=== PATIENT | female | born 1975 | race Caucasian/White ===

== ENCOUNTER 2016-10-23 12:53 | Emergency (ER) | payer OTHER ==
[~2016-10-23] VITALS: Ht 175.3 cm; Wt 76.4 kg
[~2016-10-23 12:53] MED LIST: ALBU8.5H2 INHALATION; BENZ142C6 TP; CETI10CA PO; DOCU100T2 PO; ERGO500029 PO; FERR-83 PO; FLUT16SP2 NS; IBUP800T28 PO; LORA0.5T PO; ROPI0.5T PO; SUMA50TA31 PO; VITAMIN B12 PO
[2016-10-23 12:56] VITALS: BP 123/80; PULSE 77; RESP 16; O2SAT 97
--- NOTE | 2016-10-23 14:10 | DRSVH ---
PROCEDURE: X-RAY CHEST, TWO VIEWS ([id number]) INDICATIONS: 41 year-old female with dyspnea. TECHNIQUE: 2 views of the chest were acquired. COMPARISON: None. FINDINGS: Surgical changes and devices: Cervical spine anterior fixation hardware is incompletely visualized. Lungs and pleura: No pleural effusions or pneumothorax. Lungs are clear. Mediastinum: Mediastinal contours are normal. Heart size is normal. Bones and chest wall: No suspicious bony abnormalities. Soft tissues appear unremarkable. IMPRESSION: No acute cardiopulmonary disease. Dictated by: Hebert Vidal M.D. on 10/23/2016 at 14:08 Approved by: Hebert Vidal M.D. on 10/23/2016 at 14:08
[2016-10-23 14:12] LABS: BASOPHILS % (AUTO) 0.1 % (0-3); EOSINOPHILS % (AUTO) 0.9 % (0-5); MONOCYTES % (AUTO) 10.9 % (4-12); Mean Corpuscular Hemoglobin 28.5 pg (27.0-35.0); Mean Corpuscular Volume 86.8 fL (81-100); NEUTROPHILS % (AUTO) 66.5 % (40-74); Platelet Count 202 bil/L (150-400)
--- NOTE | 2016-10-23 14:14 | ED.REPORT ---
HPI-Dyspnea / Wheezing Date of Service Oct 23, 2016 ED Provider: Carlos Sweet PA-C Elva is a 41-year-old female presents today with a chief complaint of dyspnea. Patient has a recent history of a left oophorectomy and right fallopian tube removal yesterday morning performed by Dr. Sun. Ovary is currently out for biopsy. Patient reports that it hurts in all lung enriquez to take a deep breath. Also complains of sore throat, hoarseness, chills, abdominal pain. Denies cough, wheeze, shortness of breath, chest pain, palpitations, vomiting. Patient has a history of cervical cancer, lung cancer, 4-pack-year history of smoking. Nursing Notes Stated Complaint: CHEST PAIN/POST SURGERY Chief Complaint: Chest Pain-Non Cardiac Nature Nursing Notes Reviewed: Yes Allergies: Coded Allergies: No Known Allergies (Verified Allergy, Unknown, 10/23/16) Scheduled ([Vitamin B12]) 50 MCG PO DAILY Benzoyl Peroxide (Benzoyl Peroxide) 142 Gm Cleanser 142 GM TP DAILY Cetirizine HCl (Zyrtec) 10 Mg Capsule 10 MG PO HS Ergocalciferol (Vitamin D2) (Vitamin D2) 50,000 Unit Capsule 50,000 UNIT PO QW Ferrous Sulfate (Ferrous Sulfate) 325 Mg Tablet 325 MG PO DAILY Fluticasone Propionate (Flonase Nasal) 16 Gm [place].susp 2 SPRAYS NS DAILY Ropinirole (Requip) 0.5 Mg Tablet 0.5-1 MG PO PM Scheduled PRN Albuterol HFA (Proair HFA) 8.5 Gm Hfa.aer.ad 2 PUFFS INHALATION Q4H PRN PRN For Shortness of Breath Docusate Sodium (Docusate Sodium) 100 Mg Tablet 100 MG PO BID PRN PRN For Constipation Ibuprofen (Ibuprofen) 800 Mg Tablet 800 MG PO TID PRN PRN For Pain Lorazepam (Lorazepam) 0.5 Mg Tablet 0.25-0.5 MG PO HS PRN PRN For Insomnia Sumatriptan Succinate (Imitrex) 50 Mg Tablet 50 MG PO PRN PRN PRN For Headache General Time Seen by MD: 13:06 Chief Complaint Other (dyspnea) Risk Factors PERC Rule Recent trauma or surgery PERC rule not satisfied Well's Criteria for PE Immob/surg past 4wk (1.5) Well's PE Score: 0-2 pts (low risk 3.6%) Past Medical History Past Medical History 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 Denies fever, malaise. HEENT: Admits congestion, headache, sore throat. Respiratory: Admits dyspnea. Denies cough, shortness of breath, wheezing. Cardiovascular: Denies chest pain, palpitations. Gastrointestinal: Admits abdominal pain. Denies vomiting, diarrhea. Genitourinary: Denies frequency, urgency, dysuria, hematuria. Otherwise as noted in HPI. Physical Exam General: Well developed, well nourished, no acute distress. Head: Atraumatic, normocephalic. No mastoid tenderness. Eyes: No scleral icterus or injection. No discharge. PERRL. Vision grossly intact. Ears: Pinna and tragus nontender with manipulation. External auditory canal patent, atraumatic and without discharge. Tympanic membrane pulliam, shiny and translucent without fluid, bulging, retraction or perforation. Hearing grossly intact. Nose: Symmetrical, nares patent without discharge. No frontal or maxillary sinus tenderness. Mouth/pharynx: normal dentition, mucus membranes moist. Tonsils 2+ and symmetrical, tongue and uvula midline. Pharynx noninjected, no cobblestoning or discharge. Voice clear. Neck: No tenderness or lymphadenopathy. Trachea midline. Respiratory: Regular rate and rhythm. Breath sounds present, clear to auscultation and equal bilaterally. Cardiovascular: Regular rate and rhythm, without murmur, gallop or rub. No pedal edema. Musculoskeletal: No leg swelling. Gastrointestinal: Post surgical abdomen. Port sites clean and dry without redness swelling or discharge. Superior port sites tender to palpation. Bowel sounds normoactive. Skin: Warm and dry. Neurological: Grossly nonfocal. Psychological: alert and oriented. Speech appropriate, linear and logical. Behavior appropriate. Initial Vital Signs Vital Signs (First) Date Time Temp Pulse Resp B/P Pulse Ox O2 Delivery O2 Flow Rate FiO2 10/23/16 12:56 37.1 77 16 123/80 97 Room Air Initial VS: Reviewed Interpretation & Diagnostics Lab Results Interpretation Result Diagram: 10/23/16 1405 10/23/16 1405 Test 10/23/16 14:05 White Blood Count 8.0th/mm3 (3.8-10.1) Red Blood Count 3.86mil/mm3 (3.90-5.20) Hemoglobin 11.0g/dL (12.0-15.6) Hematocrit 33.5% (35.0-46.0) Mean Corpuscular Volume 86.8fL (81-100) Mean Corpuscular Hemoglobin 28.5pg (27.0-35.0) Mean Corpuscular Hemoglobin Concent 32.8% (32.0-37.0) Red Cell Distribution Width 15.2% (12.3-15.4) Platelet Count 202bil/L (150-400) Neutrophils (%) (Auto) 66.5% (40-74) Lymphocytes (%) (Auto) 21.5% (14-46) Monocytes (%) (Auto) 10.9% (4-12) Eosinophils (%) (Auto) 0.9% (0-5) Basophils (%) (Auto) 0.1% (0-3) Sodium Level 139mEq/L (134-144) Potassium Level 3.6mEq/L (3.5-5.2) Chloride Level 103mEq/L (97-108) Carbon Dioxide Level 25mmol/L (18-29) Blood Urea Nitrogen 12mg/dL (6-24) Creatinine 0.52mg/dL (0.57-1.00) Estimat Glomerular Filtration Rate 185mL/min (>59) Glucose Level 100mg/dL (60-99) Calcium Level 8.8mg/dL (8.5-10.1) Total Bilirubin 0.3mg/dL (0.0-1.2) Aspartate Amino Transf (AST/SGOT) 17U/L (0-50) Alanine Aminotransferase (ALT/SGPT) 16U/L (0-32) Alkaline Phosphatase 32U/L (25-150) Total Protein 6.1g/dL (6.4-8.4) Albumin 3.8g/dL (3.4-5.0) Hold Lin Top Tube Received (Received) X-Ray Chest Interpretation View: AP & lat Interpretation / Wet Read by: Interpret - Radiologist NL X-Ray Chest Findings: No infiltrate, Normal lung markings, Normal heart size, Normal mediastinum, Normal great vessels, No fracture, Soft tissues normal , No acute disease, No sail sign, NL cardiothymic shadow Re-Eval/Medical Decision Med Decision/Clinical Course Discussed the case with Dr. Partida, who examined the patient and feels confident that this is postoperative pain. Despite the fact that the patient does not meet PERC, she is thought to be very low risk for pulmonary embolus due to her normal vital signs and the proximity of her surgical procedure. Discharge & Departure Impression: Primary Impression: Postoperative pain Disposition: Home Discharge Condition All VS Reviewed: Yes Condition: Stable Additional Instructions: Evaluation for dyspnea in the ED today. History, physical, EKG and chest x-ray are all reassuring that this is not a cardiac event, pneumonia or pulmonary embolism. Your pain appears to be consistent with postsurgical pain related to the recent procedure. Stable and safe for discharge to home. Continue to rest and take pain medications as directed by your surgeon. Follow-up with your surgeon as planned. Return to the emergency department for any new or worsening symptoms including fever, abdominal pain, chest pain, shortness of breath, or signs of infection at the surgical sites (increased redness, swelling , pain, discharge). Referrals: Jose D Mckenzie MD (PCP) TREVOR SUN MD EDSupervising Provider for APC: Denise Partida MD Attending Statement pt seen and examined agree with assessment and plan as above copies to: Jose D Mckenzie MD; TREVOR SUN MD, Seth PA-C Oct 23, 2016 14:14 Denise Partida MD Oct 23, 2016 16:25
[2016-10-23 15:00] VITALS: BP 123/80; PULSE 74; O2SAT 97
== END 2016-10-23 14:59 | disposition home or self-care (01) ==
LOC: SED 12:53
DX: G89.18 Other acute postprocedural pain (principal); J45.909 Unspecified asthma, uncomplicated; Z98.51 Tubal ligation status

== ENCOUNTER 2016-11-14 18:57 | Emergency (ER) | payer OTHER ==
[~2016-11-14] VITALS: Ht 175.3 cm; Wt 72.0 kg
[2016-11-14 19:37] VITALS: BP 135/85; PULSE 72; RESP 18; O2SAT 92
[2016-11-14 20:33] LABS: BASOPHILS % (AUTO) 0.3 % (0-3); EOSINOPHILS % (AUTO) 2.2 % (0-5); MONOCYTES % (AUTO) 10.2 % (4-12); Mean Corpuscular Hemoglobin 28.1 pg (27.0-35.0); Mean Corpuscular Volume 87.9 fL (81-100); NEUTROPHILS % (AUTO) 59.6 % (40-74); Platelet Count 260 bil/L (150-400)
--- NOTE | 2016-11-14 21:27 | ED.REPORT ---
HPI-Abd Pain F 40 and Over Date of Service Nov 14, 2016 ED Provider: Bossman Stout MD Ms. Rocha is a 41 y/o woman who presents today for heavy vaginal bleeding since yesterday. She is bleeding through 1 pad per hour. She rested all day today but continues to feel fatigued. She fell down 3 stairs and sprained her left hip and abdominal muscles. She slipped on algae and fell back and landed on right hand. No popping or cracking heard during fall. Pain with walking but no trouble walking. No abdominal pain prior to fall. It is a diffuse, intermittent abdominal pain. It is not sharp. Now, taking 800 mg ibuprofen but hasn't taken hydrocodone given to her after surgery at [facility]. She had her left ovary with ovarian mass removed on 2016. It is a benign tumor. She had iron deficiency in the past but told it resolved. Prior to this, her periods were regular and not as heavy and usually lasts 3-4 days. Her last period was 10/13-10/16. She takes a control pill now which have only progesterone since the surgery. She has follow up with on 11/19/2016 and appointment Friday with [facility]. Pt denies being sexually active for the past 4 weeks since her surgery. Nursing Notes Stated Complaint: HEAVY BLEEDING Chief Complaint: General Complaint Nursing Notes Reviewed: Yes Allergies: Coded Allergies: No Known Allergies (Verified Allergy, Unknown, 10/23/16) Scheduled ([Vitamin B12]) 50 MCG PO DAILY Benzoyl Peroxide (Benzoyl Peroxide) 142 Gm Cleanser 142 GM TP DAILY Cetirizine HCl (Zyrtec) 10 Mg Capsule 10 MG PO HS Ergocalciferol (Vitamin D2) (Vitamin D2) 50,000 Unit Capsule 50,000 UNIT PO QW Ferrous Sulfate (Ferrous Sulfate) 325 Mg Tablet 325 MG PO DAILY Fluticasone Propionate (Flonase Nasal) 16 Gm [place].susp 2 SPRAYS NS DAILY Ropinirole (Requip) 0.5 Mg Tablet 0.5-1 MG PO PM Scheduled PRN Albuterol HFA (Proair HFA) 8.5 Gm Hfa.aer.ad 2 PUFFS INHALATION Q4H PRN PRN For Shortness of Breath Docusate Sodium (Docusate Sodium) 100 Mg Tablet 100 MG PO BID PRN PRN For Constipation Ibuprofen (Ibuprofen) 800 Mg Tablet 800 MG PO TID PRN PRN For Pain Lorazepam (Lorazepam) 0.5 Mg Tablet 0.25-0.5 MG PO HS PRN PRN For Insomnia Sumatriptan Succinate (Imitrex) 50 Mg Tablet 50 MG PO PRN PRN PRN For Headache General Time Seen by MD: 21:15 Chief Complaint Abdominal pain Hx Obtained From: Patient Sudden in Onset?: No Severity: Current: Pain level 2 out of 10 Severity: Maximum: Pain level 4 out of 10 Status: Last NL menst cycle Sexual History / Control: Reports control pills Past Medical History Past Medical History 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 Ectopic preg x5 Endometriosis Anxiety Depression Reports: Asthma Past Surgical History coloposcopy 09/28/2014 and [facility] Bilateral salpingectomy Reports: Tubal ligation Smoking History Never Smoker Social History Alcohol Use: Denies alcohol use Drug Use: Denies drug use Other Social History: , Local resident 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 Ambulatory Status Independent Review of Systems Basic Review of Systems Eyes: Vision NL, No discharge ENT: Hearing NL, No pain, No nasal congestion, No pharyngeal pain Hematologic: No bruising Skin: No bruising, No rash, No itch Allergy / Immune: No allergy Neurologic: NL mental status, No weakness, No numbness Psychiatric: Normal thought content Constitutional: Reports: Fatigue Respiratory: Denies: Non-productive cough Cardiovascular: Denies: Chest pain GI: Denies: Bloody/tarry stool, Constipation, Diarrhea, Hematochezia, Nausea, Vomiting Female: Denies: Dysuria Musculoskeletal: Denies: Joint swelling Physical Exam Vital Signs Vital Signs (First) Date Time Temp Pulse Resp B/P Pulse Ox O2 Delivery O2 Flow Rate FiO2 11/14/16 19:37 72 18 135/85 92 Room Air Initial VS: Reviewed Head / Eyes: Atraumatic, Normocephalic ENT: Mucous membranes moist, Conjunctiva normal, No scleral icterus Extremities: Vascular intact, Neuro intact, No swelling, No tenderness Skin: Warm, Dry, No cyanosis Neurologic: Alert, Oriented, Nonfocal Psychiatric: Mood/affect normal, Behavior normal, Normal thought content Respiratory / Chest: Breath sounds NL, Breath sounds = bilat, No respiratory distress, No rales, No rhonchi, No wheezing Cardiovascular: Heart rate NL, Regular rhythm, Heart sounds NL, No gallop, No murmurs, No rubs Abdomen: Soft, No guarding, No rebound, BS normoactive, No distention, No hernia, No palpable mass Tenderness/Guarding/Rebound: Positive: Tender LLQ... (Mild), Tender flank L Trauma - Abdomen Specific: Negative: Lipan's sign, Lin Sweet's sign, Seat belt sign surgical incision sites intact without erythema, edema, or drainage Lower Extremity / Pelvis / MS: Inspection NL, Full range of motion, No swelling , Non-tender, No erythema, No deformity, Pelvis stable Interpretation & Diagnostics Lab Results Interpretation Result Diagram: 11/14/16201411/14/16 2015 Test 11/14/16 20:15 11/14/16 21:59 White Blood Count 6.5th/mm3 (3.8-10.1) Red Blood Count 4.05mil/mm3 (3.90-5.20) Hemoglobin 11.4g/dL (12.0-15.6) Hematocrit 35.6% (35.0-46.0) Mean Corpuscular Volume 87.9fL (81-100) Mean Corpuscular Hemoglobin 28.1pg (27.0-35.0) Mean Corpuscular Hemoglobin Concent 32.0% (32.0-37.0) Red Cell Distribution Width 14.6% (12.3-15.4) Platelet Count 260bil/L (150-400) Neutrophils (%) (Auto) 59.6% (40-74) Lymphocytes (%) (Auto) 27.4% (14-46) Monocytes (%) (Auto) 10.2% (4-12) Eosinophils (%) (Auto) 2.2% (0-5) Basophils (%) (Auto) 0.3% (0-3) Sodium Level 141mEq/L (134-144) Potassium Level 4.2mEq/L (3.5-5.2) Chloride Level 106mEq/L (97-108) Carbon Dioxide Level 22mmol/L (18-29) Blood Urea Nitrogen 17mg/dL (6-24) Creatinine 0.70mg/dL (0.57-1.00) Estimat Glomerular Filtration Rate 131mL/min (>59) Glucose Level 116mg/dL (60-99) Calcium Level 8.8mg/dL (8.5-10.1) Total Bilirubin 0.2mg/dL (0.0-1.2) Aspartate Amino Transf (AST/SGOT) 17U/L (0-50) Alanine Aminotransferase (ALT/SGPT) 16U/L (0-32) Alkaline Phosphatase 45U/L (25-150) Total Protein 6.6g/dL (6.4-8.4) Albumin 4.1g/dL (3.4-5.0) Hold Lin Top Tube Received (Received) Hold Urine Received (Received) Re-Eval/Medical Decision Med Decision/Clinical Course 1. abnormal uterine bleeding -Hgb 11.4, does not warrant a blood transfusion -Urine test at bedside could not be performed secondary to amount of blood in urine sample, but pt's last menstrual period was 10/13-10/16 and pt has been on oral control pills and not sexually active since 10/22/2016 -Pt had left ovary and left ovarian mass removed on 10/22/2016 -Discussed with Dr. Blank at gynecological oncology and pt's tumor had no evidence of malignancy and her last hemoglobin was 11.9 earlier in 10/2016 -Pt has follow up with her [facility] on Friday and at on 11/18/2016 -Pt given verbal instructions but did not want to wait for printed instructions The patient was initially evaluated by resident Dr. Gilda Curran. Dr Curran discussed the case with the on-call oncologic garden tractor mechanic at the [facility] and with the on-call local garden tractor mechanic for Dr. Jordan. Based on the recommendation of those consultants, we decided that further hormonal manipulation at this time would not be pena, but that she should follow up as an outpatient with her providers. There was no evidence of blood loss anemia and vital signs were stable. She discussed this with the patient. I then went in to review the history with the patient and do my usual physical examination and evaluation. Apparently based on her discussion with the resident, she was very angry when I walked in the room. She refused to let me review the usual historical questions and do any physical examination. She stated that her fall had not been properly evaluated and assumed erroneously that no more was to be done. She then would not let me even discuss her symptoms. She assumed despite proper identification, introduction, and usual white coat attire that resident Dr. Gilda Curran was a nurse, and argued repeatedly with me about the fact that she was a physician. She began to attack me personally stating that my bedside manner was atrocious and she remembered me from a previous visit at which time the same thing was true. ( That visit was pelvic pain evaluation in which her IUD was removed at her request, and there is no indication in the documentation that she had any concerns with my care at that time.) She requested to see a office machine repair shop supervisor and demanded for me to leave the room. I was in the process of discussing the situation and her request to see a office machine repair shop supervisor with the ER charge nurse when the patient left the emergency department. She did not take her written instructions or sign for her visit. Consultation : Referral / Consult Name: Konrad Lewis MD Requested Call at: 21:51 Call Returned at: 22:00 Note: Dr. Lewis recommends contacting [facility] since the pt's surgery was done there and they have records about the nature of the ovarian tumor. Counseled Regarding: Diagnosis, Lab results, Need for follow-up, When/why to return to ED Discharge & Departure Primary Impression: Menorrhagia with regular cycle Additional Impression: Fall (on) (from) other stairs and steps, initial encounter Disposition: Home Discharge Condition All VS Reviewed: Yes Condition: Stable Patient Instructions: Dysfunctional Uterine Bleeding (ED) Additional Instructions: Call your [facility] physician tomorrow morning if the bleeding continues to be heavy. Drink plenty of fluids. If you notice any bruising on your abdomen or blood in your stools return to the emergency department. Continue ibuprofen and control pills as previously prescribed. Ibuprofen should be taken with a meal. Follow up with as scheduled. Referrals: Jose D Mckenzie MD (PCP) Frank Jordan MD Attending Statement The patient was seen and examined together with Dr. Gilda Curran and I agree with the history, exam and plan as outlined in the note above. Please see my statement under MDM above copies to: Frank Jordan MD; Jose D Mckenzie MD, Marissa L DO Nov 14, 2016 21:27 Bossman Stout MD Nov 15, 2016 13:52
[2016-11-14 22:20] VITALS: BP 121/69; PULSE 76; RESP 17; O2SAT 99
== END 2016-11-14 23:10 | disposition home or self-care (01) ==
LOC: SED 18:57
DX: N92.0 Excessive and frequent menstruation with regular cycle (principal); W10.8XXA Fall (on) (from) other stairs and steps, initial encounter; Y92.89 Other specified places as the place of occurrence of the external cause; Y93.89 Activity, other specified; Y99.8 Other external cause status; J45.909 Unspecified asthma, uncomplicated; Z98.890 Other specified postprocedural states

== ENCOUNTER 2017-06-24 00:56 | Emergency (ER) | payer MEDICAID ==
[~2017-06-24] VITALS: Ht 175.3 cm; Wt 77.3 kg
[2017-06-24 00:58] VITALS: BP 153/103; PULSE 89; RESP 16; O2SAT 99
--- NOTE | 2017-06-24 01:10 | ED.REPORT ---
HPI-Headache Date of Service Jun 24, 2017 ED Provider: Dr. Siddiqi Pt is a 42 year old female with a hx of migraines presenting to the ED complaining of a headache onset today. Associated symptoms include neck pain, sore throat, and nausea. Denies numbness, tingling, vomiting, fever, chills, SOB or wheezing. She states that 5 days ago she was putting a jar of salsa away in the cupboard and it came back and hit her in the eye, but she denies any recent trauma. Nursing Notes Stated Complaint: HEADACHE Chief Complaint: Headache Nursing Notes Reviewed: Yes Allergies: Coded Allergies: No Known Allergies (Verified Allergy, Unknown, 10/23/16) Scheduled ([Vitamin B12]) 50 MCG PO DAILY Benzoyl Peroxide (Benzoyl Peroxide) 142 Gm Cleanser 142 GM TP DAILY Cetirizine HCl (Zyrtec) 10 Mg Capsule 10 MG PO HS Ergocalciferol (Vitamin D2) (Vitamin D2) 50,000 Unit Capsule 50,000 UNIT PO QW Ferrous Sulfate (Ferrous Sulfate) 325 Mg Tablet 325 MG PO DAILY Fluticasone Propionate (Flonase Nasal) 16 Gm [place].susp 2 SPRAYS NS DAILY Ropinirole (Requip) 0.5 Mg Tablet 0.5-1 MG PO PM Scheduled PRN Albuterol HFA (Proair HFA) 8.5 Gm Hfa.aer.ad 2 PUFFS INHALATION Q4H PRN PRN For Shortness of Breath Docusate Sodium (Docusate Sodium) 100 Mg Tablet 100 MG PO BID PRN PRN For Constipation Ibuprofen (Ibuprofen) 800 Mg Tablet 800 MG PO TID PRN PRN For Pain Lorazepam (Lorazepam) 0.5 Mg Tablet 0.25-0.5 MG PO HS PRN PRN For Insomnia Sumatriptan Succinate (Imitrex) 50 Mg Tablet 50 MG PO PRN PRN PRN For Headache General Time Seen by MD: 01:09 Chief Complaint Migraine headache Hx Obtained From: Patient Arrived By: Walk-in Sudden in Onset?: No Onset Occurred: Just prior to arrival Symptom Duration: Since onset Location: : Generalized Quality: Painful Severity: Current: Moderate Severity: Maximum: Severe Recent Healthcare: No recent doctor visit, No recent hospitalization Similar Sx Previous: Yes Past Medical History Past Medical History Migraines 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 Ectopic preg x5 Endometriosis Anxiety Depression Reports: Asthma Past Surgical History coloposcopy 09/28/2014 and [facility] Bilateral salpingectomy Reports: Tubal ligation Smoking History Never Smoker Social History Alcohol Use: Denies alcohol use Drug Use: Denies drug use Other Social History: , Local resident 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 Respiratory: Denies: Shortness of breath, Wheezing Physical Exam Initial Vital Signs Vital Signs (First) Date Time Temp Pulse Resp B/P Pulse Ox O2 Delivery O2 Flow Rate FiO2 06/24/17 00:58 36.7 89 16 153/103 99 Room Air Initial VS: Reviewed Respiratory: Breath sounds normal, Clear to auscultation, No respiratory distress Cardiovascular: Regular rate & rhythm, Heart sounds normal, Intact distal pulses Abdomen / GI: Soft, Non-tender, No guarding, No rebound, No distention Extremities: Vascular intact, Neuro intact, No swelling, No tenderness Skin: Warm, Dry, No cyanosis Psychiatric: Mood/affect normal, Behavior normal, Normal thought content General/Constitutional: Awake, Alert Head / Eyes: Atraumatic, Normocephalic, PERRL, EOMI Slightly tender around right periorbital area Neck: Atraumatic, Supple, No meningismus, Full range of motion Neurologic: Oriented X3, Speech NL, No motor deficits, No sensory deficits, CN II - XII intact, Cerebellar NL Re-Eval/Medical Decision Med Decision/Clinical Course 42-year-old with recurrent migraine presents with one of her typical although a bit more severe than her usual. No neurologic findings otherwise. Minor trauma 3 days prior perhaps related. Better with standard cocktail at home with previously prescribed Maxalt. Warned against use of temazepam and other benzos. She is skip drinking coffee recently and caffeine withdrawal may be a piece of what precipitated tonight's headache. Re-Evaluation/Progress : Time of Eval: 03:10 )( Patient Status: Condition improved Re-Evaluation/Progress Note: Pt is feeling much better and is ready to go home. Discussed plan for discharge. Pt understands and agrees with plan. Counseled Regarding: Diagnosis, Lab results, Need for follow-up, When/why to return to ED Discharge & Departure Impression: Primary Impression: Migraine Migraine type: unspecified Status migrainosus presence: without status migrainosus Intractability: intractable Qualified Code: G43.919 - Migraine, unspecified, intractable, without status migrainosus Additional Impression: Caffeine withdrawal Disposition: Home Discharge Condition All VS Reviewed: Yes Condition: Improved Patient Instructions: Migraine Headache (ED) Additional Instructions: Multiple things can trigger migraines. Minor head trauma, withdrawal from caffeine, withdrawal from other medicines. I do not recommend benzodiazepine sleeping aids for migraine suffers. They cause migraine on withdrawal routinely. I would not suggest using the rest of your temazepam. Follow-up with your doctor in the office. Continue to use your Maxalt at the earliest opportunity at the start of a headache. Return for any immediate issues. Referrals: Jose D Mckenzie MD (PCP) Scribe Attestation Portions of this note were transcribed by Thomas Whitt. I, Dr. Siddiqi personally performed the history, physical exam and medical decision-making; I reviewed and confirmed the accuracy of the information in the transcribed note. Signed by: Bassem Bobo, 06/23/2017. copies to: Jose D Mckenzie MD, Christopher W MD Jun 24, 2017 01:10 THOMAS WHITT Jun 24, 2017 01:17
[2017-06-24] MEDS ORDERED: 0.9% Sodium Chloride 1,000 ML IV ONE (01:17)
[2017-06-24] MEDS ORDERED: Haloperidol 5 mg/mL Inj IVPUSH ONE (01:20)
[2017-06-24] MEDS ORDERED: Dexamethasone 10 mg/mL Inj IVPUSH ONE (01:20)
[2017-06-24 03:18] VITALS: BP 132/79; PULSE 87; RESP 18; O2SAT 96
== END 2017-06-24 03:19 | disposition home or self-care (01) ==
LOC: SED 00:56
DX: G43.919 Migraine, unspecified, intractable, without status migrainosus (principal); F15.93 Other stimulant use, unspecified with withdrawal; J45.909 Unspecified asthma, uncomplicated; Z79.51 Long term (current) use of inhaled steroids
CPT/HCPCS: 96361; 96374; 96375; 99284; J1100; J1200; J1630; J1885; J7030